=== PATIENT | male | born 1975 | race Caucasian/White ===

== ENCOUNTER 2018-03-22 18:58 | Emergency (ER) | payer SELFPAY ==
[~2018-03-22] VITALS: Ht 170.2 cm; Wt 137.7 kg
[2018-03-22 19:07] VITALS: BP 166/98; PULSE 112; RESP 16; TEMP 98.4; O2SAT 96
[2018-03-22 19:27] VITALS: BP 141/89; PULSE 104; RESP 16; O2SAT 99
[2018-03-22] MEDS ORDERED: SODIUM CHLOR 0.9% 1000 ML INJ 1,000 ML IV SCH (19:37)
--- NOTE | 2018-03-22 19:43 | PD ---
HPI Chief Complaint: Abdominal Pain Time Seen by Provider: 19:31 Travel History International Travel<30 days: No Contact w/Intl Traveler<30days: No Traveled to known affect area: No History of Present Illness HPI 42-year-old male complains of abdominal pain, abdominal bloating. Patient states that the symptoms started 2 days ago. Patient states the pain and cramping pain diffuse over the abdomen. Patient states that the pain is more severe on the right lower quadrant started today. Patient states that he has increasing abdominal pain and abdominal bloating today also. Patient denies any headache. Patient denies any chest pain or shortness of breath. Patient denies any back pain. Patient denies any dysuria frequency. Patient denies any fever chills. Patient states that he had a good bowel movement this morning. Patient states that the pain radiates to the right groin area. Patient denies any abdominal injury. On a scale of 1-10 the pain is a 6. PFSH Past Medical History Medical History: Denies Significant Hx ?: Not Past Surgical History Surgical History: No Previous Surgery Social History Alcohol Use: No Tobacco Use: No Substance Use: No Allergies-Medications (Allergen,Severity, Reaction): Coded Allergies: No Known Allergies (Unverified , 03/22/18) Reported Meds & Prescriptions Reported Meds & Active Scripts Active Bentyl (Dicyclomine HCl) 10 Mg Cap 10 Mg PO TID PRN Protonix (Pantoprazole Sodium) 20 Mg Tab 20 Mg PO DAILY Review of Systems General / Constitutional: No: Fever Eyes: No: Visual changes HENT: No: Headaches Cardiovascular: No: Chest Pain or Discomfort Respiratory: No: Shortness of Breath Gastrointestinal: Positive: Abdominal Pain Genitourinary: No: Dysuria Musculoskeletal: No: Pain Skin: No Rash Neurologic: No: Weakness Psychiatric: No: Depression Endocrine: No: Polydipsia Hematologic/Lymphatic: No: Easy Bruising Physical Exam Narrative GENERAL: Well-nourished, well-developed patient. SKIN: Focused skin assessment warm/dry. HEAD: Normocephalic. EYES: No scleral icterus. No injection or drainage. NECK: Supple, trachea midline. No JVD or lymphadenopathy. CARDIOVASCULAR: Regular rate and rhythm without murmurs, gallops, or rubs. RESPIRATORY: Breath sounds equal bilaterally. No accessory muscle use. GASTROINTESTINAL: Abdomen soft, nondistended. Active bowel sounds. Patient has mild diffuse tenderness over the abdomen. No rebound tenderness. No mass. MUSCULOSKELETAL: No cyanosis, or edema. BACK: Nontender without obvious deformity. No CVA tenderness. exam normal. No tenderness on palpation of the testicle or scrotum. Neurologic exam normal. Data Data Last Documented VS Vital Signs Date Time Temp Pulse Resp B/P (MAP) Pulse Ox O2 Delivery O2 Flow Rate FiO2 03/22/18 21:37 102 16 149/64 (92) 100 Room Air 03/22/18 19:07 98.4 Orders Orders Complete Blood Count With Diff (03/22/18 19:37) Comprehensive Metabolic Panel (03/22/18 19:37) Lipase (03/22/18 19:37) Prothrombin Time / Inr (Pt) (03/22/18 19:37) Act Partial Throm Time (Ptt) (03/22/18 19:37) Urinalysis - C+S If Indicated (03/22/18 19:37) Ct Abd/Pel W Iv Contrast(Rout) (03/22/18 19:37) Iv Access Insert/Monitor (03/22/18 19:37) Ecg Monitoring (03/22/18 19:37) Oximetry (03/22/18 19:37) Ondansetron Inj (Zofran Inj) (03/22/18 19:45) Sodium Chlor 0.9% 1000 Ml Inj (Ns 1000 M (03/22/18 19:37) Sodium Chloride 0.9% Flush (Ns Flush) (03/22/18 19:45) Famotidine Inj (Pepcid Inj) (03/22/18 19:45) Iohexol 350 Inj (Omnipaque 350 Inj) (03/22/18 20:43) Ed Discharge Order (03/22/18 21:38) Labs Laboratory Tests Test 03/22/18 19:45 03/22/18 19:50 Urine Color YELLOW Urine Turbidity CLEAR Urine pH 6.0 Urine Specific [place] 1.010 Urine Protein TRACE mg/dL Urine Glucose (UA) NEG mg/dL Urine Ketones NEG mg/dL Urine Occult Blood SMALL Urine Nitrite NEG Urine Bilirubin NEG Urine Urobilinogen 0.2 MG/DL Urine Leukocyte Esterase NEG Urine RBC 0-3 /hpf Urine WBC 0-2 /hpf Urine Squamous Epithelial Cells 0-5 /hpf Microscopic Urinalysis Comment CULT NOT INDICATED White Blood Count 11.4 TH/MM3 Red Blood Count 5.48 MIL/MM3 Hemoglobin 15.8 GM/DL Hematocrit 47.4 % Mean Corpuscular Volume 86.5 FL Mean Corpuscular Hemoglobin 28.9 PG Mean Corpuscular Hemoglobin Concent 33.4 % Red Cell Distribution Width 12.5 % Platelet Count 359 TH/MM3 Mean Platelet Volume 7.2 FL Neutrophils (%) (Auto) 81.1 % Lymphocytes (%) (Auto) 13.0 % Monocytes (%) (Auto) 4.8 % Eosinophils (%) (Auto) 0.3 % Basophils (%) (Auto) 0.8 % Neutrophils # (Auto) 9.3 TH/MM3 Lymphocytes # (Auto) 1.5 TH/MM3 Monocytes # (Auto) 0.5 TH/MM3 Eosinophils # (Auto) 0.0 TH/MM3 Basophils # (Auto) 0.1 TH/MM3 CBC Comment DIFF FINAL Differential Comment Prothrombin Time 10.7 SEC Prothromb Time International Ratio 1.1 RATIO Activated Partial Thromboplast Time 29.6 SEC Blood Urea Nitrogen 9 MG/DL Creatinine 1.00 MG/DL Random Glucose 102 MG/DL Total Protein 8.6 GM/DL Albumin 4.4 GM/DL Calcium Level 9.4 MG/DL Alkaline Phosphatase 86 U/L Aspartate Amino Transf (AST/SGOT) 22 U/L Alanine Aminotransferase (ALT/SGPT) 39 U/L Total Bilirubin 0.5 MG/DL Sodium Level 134 MEQ/L Potassium Level 3.8 MEQ/L Chloride Level 98 MEQ/L Carbon Dioxide Level 25.8 MEQ/L Anion Gap 10 MEQ/L Estimat Glomerular Filtration Rate 81 ML/MIN Lipase 145 U/L [facility] Medical Decision Making Medical Screen Exam Complete: Yes Emergency Medical Condition: Yes Interpretation(s) 2021 PM. CBC WBC 11.4. 81 neutrophil. CMP within normal limits. Sodium 134. UA is negative. 21:34 PM. Last Impressions Abdomen/Pelvis CT 03/22/181936 Signed Impressions: CONCLUSION: 1. No acute finding is identified to explain the right lower quadrant pain. Th e appendix is normal. 2. Nonacute findings include hepatic steatosis and mild atherosclerotic diseas e. Differential Diagnosis Differential diagnosis including gastritis, PUD, pancreatitis, cholecystitis, colitis, UTI, pyelonephritis, nephrolithiasis, bowel obstruction. Narrative Course 42-year-old male with abdominal pain and abdominal bloating. Normal saline solution 1 25 cc an hour. Pepcid 20 mg IV. Zofran 4 mg IV. Diagnosis Primary Impression: Abdominal colic Patient Instructions: General Instructions Additional Instructions: Take medication as directed. Follow-up with personal physician. Return to persistent problem or worse. Med/Other Pt SpecificInfo: Prescription(s) given Scripts Dicyclomine (Bentyl) 10 Mg Cap 10 MG PO TID Y for Bowel Management, #21 CAP 0 Refills Prov: Forrest Smart MD 03/22/18 Pantoprazole (Protonix) 20 Mg Tab 20 MG PO DAILY for Reflux, #30 TAB 0 Refills Prov: Forrest Smart MD 03/22/18 Disposition: 01 DISCHARGE HOME Condition: Stable Forrest Smart MD Mar 22, 2018 19:43
[2018-03-22] MEDS ORDERED: SODIUM CHLORIDE 0.9% FLUSH 10 ML FLUSH IV FLUSH PRN (19:45)
[2018-03-22] MEDS ORDERED: FAMOTIDINE 20 MG/2 ML VIAL IV PUSH ONE (19:45)
[2018-03-22] MEDS ORDERED: ONDANSETRON HCL 4 MG/2 ML VIAL IVP ONE (19:45)
[2018-03-22 19:58] LABS: BILIRUBIN, URINE NEG (NEG); BLOOD, URINE SMALL (NEG); GLUCOSE,URINE NEG (NEG); KETONE, URINE NEG (NEG); NITRITE,URINE NEG (NEG); URINE COLOR YELLOW (YELLW/STRAW); URINE LEUKOCYTE ESTERASE NEG (NEG)
[2018-03-22 20:04] LABS: AUTOMATED NEUTROPHIL # 9.3 TH/MM3 (1.8-7.7); BASOPHIL # 0.1 TH/MM3 (0-0.2); BASOPHIL % 0.8 % (0.0-2.0); EOSINOPHIL % 0.3 % (0.0-4.0); HEMATOCRIT 47.4 % (39.0-51.0); HEMOGLOBIN 15.8 GM/DL (13.0-17.0); LYMPHOCYTE # 1.5 TH/MM3 (1.0-4.8); MEAN CELL VOLUME 86.5 FL (80.0-100.0); MEAN CORPUSCULAR HEMOGLOBIN 28.9 PG (27.0-34.0); MEAN CORPUSCULAR HGB CONC 33.4 % (32.0-36.0); MEAN PLATELET VOLUME 7.2 FL (7.0-11.0); MONO % 4.8 % (0.0-8.0); MONOCYTE # 0.5 TH/MM3 (0-0.9); NEUT % 81.1 % (16.0-70.0); PLATELET COUNT 359 TH/MM3 (150-450); RED BLOOD COUNT 5.48 MIL/MM3 (4.50-5.90); RED CELL DISTRIBUTION WIDTH 12.5 % (11.6-17.2); WHITE BLOOD COUNT 11.4 TH/MM3 (4.0-11.0)
[2018-03-22 20:05] LABS: CHLORIDE 98 MEQ/L (98-107); SODIUM (NA) 134 MEQ/L (136-145)
[2018-03-22 20:08] LABS: CALCIUM 9.4 MG/DL (8.5-10.1)
[2018-03-22 20:09] LABS: ALBUMIN 4.4 GM/DL (3.4-5.0); BICARBONATE 25.8 MEQ/L (21.0-32.0); BLOOD UREA NITROGEN 9 MG/DL (7-18); GLUCOSE,RANDOM 102 MG/DL (74-106)
[2018-03-22 20:11] LABS: INTERNATIONAL NORMALIZED RATIO 1.1 RATIO; PROTHROMBIN TIME - PATIENT 10.7 SEC (9.8-11.6)
[2018-03-22 20:12] LABS: ALT (GPT) 39 U/L (12-78); AST (GOT) 22 U/L (15-37); GLOMERULAR FILTRATION RATE 81 ML/MIN (>89)
[2018-03-22 20:12] LABS: RBC, URINE 0-3 /hpf (0-3); SQUAMOUS EPITHELIAL CELL URINE 0-5 /hpf (0-5)
[2018-03-22 20:13] LABS: TOTAL BILIRUBIN ADULT 0.5 MG/DL (0.2-1.0); TOTAL PROTEIN 8.6 GM/DL (6.4-8.2)
[2018-03-22 20:14] LABS: ALKALINE PHOSPHATASE 86 U/L (45-117)
[2018-03-22 20:26] LABS: WBC, URINE 0-2 /hpf (0-5)
[2018-03-22] MEDS ORDERED: IOHEXOL 350 MG/ML 10 ML VIAL (for RAD DIAG) IVCONTRAST ONE (20:43)
[2018-03-22 21:00] VITALS: BP 149/68; PULSE 102; RESP 16; O2SAT 99
--- NOTE | 2018-03-22 21:07 | RADRPT ---
EXAM DATE: 03/22/2018 8:45 PM EDT AGE/SEX: 42 years / Male INDICATIONS: Right lower quadrant pain. Abdominal distention. CLINICAL DATA: This is the patient's initial encounter. Patient reports that signs and symptoms have been present for 2 days and indicates a pain score of 6/10. MEDICAL/SURGICAL HISTORY: None. None. ORAL CONTRAST: No oral contrast ingested. RADIATION DOSE: 26.78 CTDI (mGy) ; Patient body habitus COMPARISON: No prior exams available for comparison. TECHNIQUE: Multiple contiguous axial images were obtained through the abdomen and pelvis following b olus infusion of 90 ml Omnipaque 350 (iohexol) nonionic water-soluble contrast as a single exam dos e. No oral contrast ingested. Using automated exposure control and adjustment of the mA and/or kV ac cording to patient size, the radiation dose was kept as low as reasonably achievable to obtain optima l diagnostic quality images. FINDINGS: Lower chest: No acute abnormality is identified. Hepatobiliary: There is hepatic steatosis. No liver lesion is identified. Hepatic vasculature is with in normal limits. No calcified gallstones are present. Kidneys: No hydronephrosis, stone, or mass. Adrenal Glands: Within normal limits. Spleen: Within normal limits. Pancreas: Within normal limits. Vascular: The aorta is nonaneurysmal. There is mild atherosclerotic disease of the left iliac arterie s. Bowel/Mesentery: The stomach and small bowel demonstrate no abnormality. No acute colon abnormality i s seen. There is no free intraperitoneal air or fluid. Appendix and terminal ileum are normal. Abdominal Wall: No hernia is visualized. Retroperitoneum: No lymphadenopathy. Bladder: No wall thickening or mass. Reproductive: Prostate and seminal vesicles demonstrate no abnormality. There is vas deferens calcifi cation which is typically seen in diabetic patients. Inguinal: No lymphadenopathy or hernia. Musculoskeletal: No acute osseous abnormality is identified. There are degenerative changes of the th oracic spine. CONCLUSION: 1. No acute finding is identified to explain the right lower quadrant pain. The appendix is normal. 2. Nonacute findings include hepatic steatosis and mild atherosclerotic disease. Electronically signed by: Jonn Lubin MD 03/22/2018 9:06 PM EDT
[2018-03-22 21:37] VITALS: BP 149/64; PULSE 102; RESP 16; O2SAT 100
[2018-03-22] MEDS ORDERED: PANT20 PO (21:38)
[2018-03-22] MEDS ORDERED: DICY10 PO (21:38)
== END 2018-03-22 22:00 | disposition home or self-care (01) ==
LOC: PHED 18:58
DX: R10.84 Generalized abdominal pain (principal)
CPT/HCPCS: 74177; 80053; 81001; 83690; 85025; 85610; 85730; 96361; 96374; 96375; 99284; J2405; J7030; Q9967